=== PATIENT | male | born 1975 | race Caucasian/White ===

== ENCOUNTER 2017-12-11 06:35 | Emergency (ER) | payer SELFPAY ==
[2017-12-11] MEDS ORDERED: ONDANSETRON HCL IV 4 MG/2 ML VIAL IVP ONE ×2 (06:47→07:37)
[2017-12-11] MEDS ORDERED: 0.9 % SODIUM CHLORIDE 1000ML 1,000 ML IV ONE (06:50)
[2017-12-11 06:52] LABS: BASO % 0.3 % (0-6); EOS % 1.6 % (0-6); GRAN % 49.4 % (47-80); HEMATOCRIT 42.1 % (42.0-52.0); HEMOGLOBIN 15.1 gm/dl (14.0-18.0); LYMPH % 33.9 % (16-45); MEAN CELL VOLUME 89.2 fl (81-97); MEAN CORPUSCULAR HGB CONC 35.9 g/dl (32-36); MEAN PLATELET VOLUME 9.5 fl (7.4-10.4); MONO % 14.8 % (0-9); PLATELET COUNT 213 K/uL (130-400); RED BLOOD COUNT 4.72 M/uL (4.40-5.70); RED CELL DISTRIBUTION WIDTH 13.2 % (11.5-14.5); WHITE BLOOD COUNT W/O DIFF 5.8 K/uL (4.2-12.2)
[2017-12-11 07:02] LABS: BLOOD UREA NITROGEN 24 mg/dL (6-20); CREATININE 0.8 mg/dL (0.7-1.2); EST GLOMERULAR FILTRATION RATE > 60 mL/min; TOTAL PROTEIN 7.1 g/dL (6.6-8.7)
[2017-12-11 07:04] LABS: GLUCOSE,RANDOM 261 mg/dL (74-109)
[2017-12-11 07:07] LABS: ALB/GLOB RATIO 1.5 (1.1-1.8); ALBUMIN 4.3 g/dL (4.0-5.0); ALKALINE PHOSPHATASE 85 U/L (40-129); ALT/SGPT 56 U/L (<41); AST/SGOT 23 U/L (10.0-50.0); LIPASE 61 U/L (13-60)
[2017-12-11] MEDS ORDERED: MORPHINE SULFATE 4MG/ML PREFILLED SYRINGE IVP ONE ×2 (07:08→07:37)
--- NOTE | 2017-12-11 07:16 | Emergency Department Record ---
History of Present Illness - General Chief Complaint: Abdominal Pain Stated Complaint: ABDOMINAL PAIN Time Seen by Provider: 12/11/17 07:02 Source: Patient Mode of Arrival: Ambulatory Limitations: No limitations - History of Present Illness Initial Comments: 42 yo male presents with abdominal pain. The pain started yesterday. He reports he has chronic pancreatitis from elevated triglycerides. He has associated nausea and vomiting. He states he still has a gall bladder and does not drink alcohol. His is in between PCP's. No fevers. No diarrhea. No blood in the stools. MD Complaint: Abdominal pain Onset/Timin -: Days(s) Location: Epigastric Radiation: Back Migration to: Epigastric Severity: Moderate, Severe Severity scale (1-10): 10 Quality: Sharp Consistency: Constant Improves With: Nothing Worsens With: Eating Associated Symptoms: Nausea, Vomiting - Related Data Home Medications Medication Instructions Recorded Confirmed Last Taken Atorvastatin Calcium [Lipitor] 40 mg PO QPM 12/11/17 12/11/17 Unknown Insulin Glargine,Hum.rec.anlog 25 unit SQ DAILY 12/11/17 12/11/17 Unknown [Lantus Solostar] Metformin HCl [Glucophage] 850 mg PO BID 12/11/17 12/11/17 Unknown Previous Rx's Medication Instructions Recorded Ondansetron [Zofran Odt] 4 mg PO Q8H #15 tab.rapdis 12/11/17 Allergies Allergy/AdvReac Type Severity Reaction Status Date / Time diphenhydramine AdvReac BEHAVIORAL Verified 12/11/17 06:41 [From Benadryl] CHANGES ketorolac [From Toradol] AdvReac anxiety Verified 12/11/17 06:41 niacin AdvReac RASH Verified 12/11/17 06:39 Travel Screening - Travel/Exposure Within Last 30 Days Have you traveled within the last 30 days?: No - Travel Symptoms Symptom Screening: None Review of Systems Constitutional: Denies: Chills, Fever, Malaise, Weakness Eyes: Denies: Eye discharge ENT: Denies: Congestion, Throat pain Respiratory: Denies: Cough, Dyspnea Cardiovascular: Denies: Chest pain, Syncope Endocrine: Denies: Fatigue Gastrointestinal: Reports: As per HPI, Abdominal pain, Nausea, Vomiting. Denies : Diarrhea Genitourinary: Denies: Dysuria, Frequency, Hematuria, Testicular pain Musculoskeletal: Denies: Arthralgia, Back pain, Myalgia Skin: Denies: Bruising, Change in color, Rash Neurological: Denies: Headache, Numbness, Weakness Psychiatric: Denies: Anxiety Hematological/Lymphatic: Denies: Easy bleeding, Easy bruising Past Medical History - SOCIAL HISTORY Smoking Status: Never smoker Alcohol Use: None Drug Use: None - RESPIRATORY Hx Respiratory Disorders: No - CARDIOVASCULAR Hx Cardio Disorders: Yes Comment:: high cholesterol - NEURO Hx Neuro Disorders: No - GI Hx GI Disorders: Yes Hx Pancreatitis: Yes - Hx Genitourinary Disorders: No - ENDOCRINE Hx Endocrine Disorders: Yes Hx Diabetes: Yes - MUSCULOSKELETAL Hx Musculoskeletal Disorders: No - PSYCH Hx Psych Problems: No - HEMATOLOGY/ONCOLOGY Hx Hematology/Oncology Disorders: No Family Medical History Any Significant Family History?: Yes Hx Diabetes: Father Hx Heart Disease: Father Physical Exam - General General Appearance: Alert, Oriented x3, Cooperative, No acute distress Limitations: No limitations - Head Head exam: Normal inspection - Eye Eye exam: Normal appearance, PERRL. negative: Conjunctival injection, Scleral icterus - ENT ENT exam: Normal exam, Mucous membranes moist Ear exam: Normal external inspection Nasal Exam: Normal inspection Mouth exam: Normal external inspection Teeth exam: Normal inspection Throat exam: Normal inspection - Neck Neck exam: Normal inspection, Full ROM. negative: Tenderness - Respiratory Respiratory exam: Normal lung sounds bilaterally. negative: Respiratory distress - Cardiovascular Cardiovascular Exam: Regular rate, Normal rhythm, Normal heart sounds - GI/Abdominal GI/Abdominal exam: Soft, Tenderness (mid abdomen). negative: Distended, Guarding - Rectal Rectal exam: Deferred - exam: Deferred - Extremities Extremities exam: Normal inspection, Full ROM, Normal capillary refill. negative: Tenderness - Back Back exam: Reports: Normal inspection, Full ROM. Denies: Muscle spasm, Rash noted, Tenderness - Neurological Neurological exam: Alert, Normal gait, Oriented X3 - Psychiatric Psychiatric exam: Normal affect, Normal mood - Skin Skin exam: Dry, Intact, Normal color, Warm Course Vital Signs 12/11/17 06:42 Temperature 98.2 F Pulse Rate [ 87 Pulse Ox Probe] Respiratory 24 Rate Blood Pressure 139/84 [Left Arm] Pulse Ox 96 - Reevaluation(s) Reevaluation #1: The patient states he was dropped off by significant other. He has a ride and is not driving. This was confirmed prior to given narcotic medication 12/11/17 07:19 [facility] EMR reviewed 12/04/17 CT reviewed at [facility] [place]. Normal. constipation noted. Lipase 82. 12/02/17 [facility] [place] 12[place]01[place]17 [facility] [place]. Lipase 461 12/11/17 07:21 12/11/17 07:34 The labs were reviewed The lipase is 61 with normal LFT's 12/11/17 07:37 Given his normal vitals, normal scan in the last week, reassuring labs he will be treated symptomatically, DC home with instructions to call his GI doctor and continue to look for a new doctor. 12/11/17 07:53 12/11/17 08:19 The patient has not ride. He will not be driving. He does not demonstrate any signs of drowsiness, sleepiness, or side effects of the medication. He will walk and not drive a car. He is clinically very stable and certainly stable to walk without showing any signs of impairment. I reviewed the hospital narcotic policy with him. All prescriptions for chronic pain control will need to come from a PCP or specialist. Medical Decision Making - Lab Data Result diagrams: 12/11/17 06:45 12/11/17 06:45 Lab Results 12/11/17 Range/Units 06:45 WBC 5.8 (4.2-12.2) K/uL RBC 4.72 (4.40-5.70) M/uL Hgb 15.1 (14.0-18.0) gm/dl Hct 42.1 (42.0-52.0) % MCV 89.2 (81-97) fl MCH 32.0 (27-33) pg MCHC 35.9 (32-36) g/dl RDW 13.2 (11.5-14.5) % Plt Count 213 (130-400) K/uL MPV 9.5 (7.4-10.4) fl Gran % 49.4 (47-80) % Lymphocytes % 33.9 (16-45) % Monocytes % 14.8 H (0-9) % Eosinophils % 1.6 (0-6) % Basophils % 0.3 (0-6) % Disposition Disposition: Discharge Clinical Impression: Abdominal pain Qualifiers: Abdominal location: unspecified location Qualified Code(s): R10.9 - Unspecified abdominal pain Disposition: Home, Self-Care Condition: (1) Good Instructions: Pancreatitis (ED), Abdominal Pain (ED) Additional Instructions: Liquid diet Rest and stay hydrated Be seen if worse, vomiting or new concerns Call today to continue to looking for a new family doctor. Prescriptions: Ondansetron [Zofran Odt] 4 mg PO Q8H #15 tab.rapdis Forms: Patient Portal Access Time of Disposition: 07:40 Quality - Quality Measures Quality Measures: N/A - Blood Pressure Screening Does Patient Have Any of the Following: No Blood Pressure Classification: Pre-Hypertensive BP Reading Systolic Measurement: 125 Diastolic Measurement: 74 Screening for High Blood Pressure: < Pre-Hypertensive BP, F/U Documented > [ [id number]] Pre-Hypertensive Follow-up Interventions: Referral to alternative/primary care provider.
[2017-12-11 07:33] LABS: URINE APPEARANCE CLEAR; URINE BILIRUBIN NEGATIVE (NEGATIVE); URINE BLOOD NEGATIVE (NEGATIVE); URINE COLOR YELLOW; URINE KETONE NEGATIVE (NEGATIVE); URINE LEUKOCYTE ESTERASE NEGATIVE (NEGATIVE); URINE NITRITE NEGATIVE (NEGATIVE); URINE PROTEIN NEGATIVE (NEGATIVE); URINE UROBILINOGEN 0.2 E.U./dL (0.20 - 1.00)
[2017-12-11 07:36] LABS: URINE GLUCOSE (UA) >=1000 mg/dL (NEGATIVE)
== END 2017-12-11 08:26 | disposition home or self-care (01) ==
LOC: ER 06:35
DX: R10.13 Epigastric pain (principal); R11.2 Nausea with vomiting, unspecified; K86.1 Other chronic pancreatitis
CPT/HCPCS: 99284 ×2; 96374; 96375; 96361; 83690; 85025; 80053; 81003; J2405; J2274; J7030